=== PATIENT | female | born 1990 | race African-American/Black ===

== ENCOUNTER 2019-02-02 11:00 | Emergency (ER) | payer SELFPAY ==
[~2019-02-02] VITALS: Ht 167.6 cm; Wt 79.0 kg
[2019-02-02] MEDS ORDERED: CYCLOBENZAPRINE 10MG TABLET PO ONE (12:15)
[2019-02-02 12:36] VITALS: BP 127/84
== END 2019-02-02 12:46 | disposition home or self-care (01) ==
LOC: ER 11:00
DX: M79.10 Myalgia, unspecified site (principal); V43.62XA Car passenger injured in collision with other type car in traffic accident, initial encounter; Y93.89 Activity, other specified; Y92.488 Other paved roadways as the place of occurrence of the external cause
CPT/HCPCS: 81025; 99283

== ENCOUNTER 2022-04-19 11:21 | Inpatient (IN) | payer MEDICAID ==
[~2022-04-19] VITALS: Ht 167.6 cm; Wt 91.6 kg
[2022-04-19] MEDS ORDERED: VANCOMYCIN 1G PREMIX 200 ML IV ONE (11:45)
[2022-04-19] MEDS ORDERED: SODIUM CHLORIDE 0.9% 1000ML BAG (SEPSIS BOLUS) IV ONE (11:45)
[2022-04-19] MEDS ORDERED: PIPERACILLIN/TAZ 3.375G PREMIX 50 ML IV ONE (11:45)
[2022-04-19] MEDS ORDERED: KETOROLAC 15MG/ML VIAL IV ONE (11:45)
[2022-04-19] MEDS ORDERED: PIPERACILLIN/TAZ 3.375G PREMIX 50 ML IV NR (13:00)
[2022-04-19] MEDS ORDERED: ACETAMINOPHEN 325MG TABLET PO ONE (13:00)
[2022-04-19 13:09] LABS: HEMATOCRIT. 41.9 % (36.0-48.0); HEMOGLOBIN. 14.2 g/dL (12.0-16.0); MEAN CORPUSCULAR HEMOGLOBIN 29.8 pg (28.0-32.0); MEAN CORPUSCULAR VOLUME 87.7 fL (81.0-99.0); MEAN PLATELET VOLUME 8.1 fl (7.4-10.4); PLATELET 304 x1000/uL (130-400); RED BLOOD CELL COUNT 4.78 mill/uL (4.2-5.4); RED CELL DISTRIBUTION WIDTH 14.7 % (11.6-14.6)
[2022-04-19 13:14] LABS: INR 1.6; PROTHROMBIN TIME 16.5 sec (9.6-11.0)
[2022-04-19] MEDS ORDERED: KETOROLAC 15MG/ML VIAL IV NR (13:15)
[2022-04-19 13:20] LABS: CHLORIDE 93 mEq/L (98-107)
[2022-04-19 13:22] LABS: CLARITY URINE TURBID (CLEAR); COLOR URINE ORANGE (YELLOW); KETONES URINE TRACE (NEGATIVE); LEUKOCYTE ESTERASE URINE 1+ (NEGATIVE); NITRITE URINE POSITIVE (NEGATIVE); OCCULT BLOOD URINE 2+ (NEGATIVE); PROTEIN URINE 3+ (NEGATIVE); SPECIFIC GRAVITY URINE 1.025 (1.005-1.030)
[2022-04-19] MEDS ORDERED: WATER IV NR (13:30)
[2022-04-19] MEDS ORDERED: VANCOMYCIN 1,000 MG in DEXT 5% WATER 250 ML IV NR (13:30)
[2022-04-19] MEDS ORDERED: DEXT 5% IV NR (13:30)
[2022-04-19] MEDS ORDERED: VANCOMYCIN IV NR (13:30)
[2022-04-19 13:35] LABS: CREATINE KINASE 74 IU/L (26-192); ETHANOL BLOOD < 10 mg/dL
[2022-04-19 13:45] LABS: *BARBITURATES SCREEN URINE NEGATIVE (NEGATIVE); *BENZODIAZEPINES SCREEN URINE NEGATIVE (NEGATIVE); *COCAINE SCREEN URINE NEGATIVE (NEGATIVE); CANNABINOID URINE SCREEN NEGATIVE (NEGATIVE); METHADONE URINE SCREEN NEGATIVE (NEGATIVE); OPIATES URINE SCREEN NEGATIVE (NEGATIVE); PHENCYCLIDINE URINE SCREEN NEGATIVE (NEGATIVE)
[2022-04-19] MEDS ORDERED: ONDANSETRON HCL 4MG/2ML INJ IV NR (13:45)
[2022-04-19 13:52] LABS: *AMPHETAMINES SCREEN URINE PRESUMTIVE POSITIVE (NEGATIVE)
[2022-04-19 14:02] LABS: PLATELET ESTIMATE NORMAL
[2022-04-19 14:13] LABS: HCG SCREEN NEGATIVE
[2022-04-19] MEDS ORDERED: IOHEXOL-300 100 ML BOTTLE ONE (15:55)
[2022-04-19] MEDS ORDERED: SODIUM CHLORIDE 0.9% 1,000 ML IV ONE (16:30)
[2022-04-19 17:18] VITALS: BP 118/60
[2022-04-19 17:31] VITALS: BP 118/60
[2022-04-19] MEDS ORDERED: IPRATROPIUM/ALBUTEROL 0.5-3(2.5)MG/3ML NEB HHN PRN (17:45)
[2022-04-19] MEDS ORDERED: CLONIDINE 0.1MG TABLET PO PRN (17:45)
[2022-04-19] MEDS ORDERED: ONDANSETRON HCL 4MG/2ML INJ IV PRN (17:45)
[2022-04-19] MEDS ORDERED: DIPHENHYDRAMINE 50MG/ML VIAL IV PRN (17:45)
[2022-04-19 18:00] VITALS: BP 113/68
[2022-04-19] MEDS ORDERED: SODIUM CHLORIDE 0.9% 1,000 ML IV SCH (18:00)
[2022-04-19 20:00] VITALS: BP 106/67
[2022-04-19] MEDS ORDERED: POTASSIUM CHLORIDE INJ 40 MEQ in DEXT 5% WATER 250 ML IV ONE (20:00)
[2022-04-19] MEDS ORDERED: PIPERACILLIN/TAZOBACTAM 3.375 G in DEXTROSE 5% WATER 50 ML IV SCH (21:00)
[2022-04-19 22:00] VITALS: BP 111/75
[2022-04-19] MEDS: SODIUM CHLORIDE 0.9% 1,000 ML IV SCH (22:08)
[2022-04-19] MEDS: ACETAMINOPHEN 325MG TABLET PO PRN (22:24)
[2022-04-19] MEDS: KCL 20MEQ/100ML X 2 FOR TOTAL KCL 40MEQ/200ML IV SCH (23:37)
[2022-04-19] MEDS: VANCOMYCIN 1,000 MG in DEXT 5% WATER 250 ML IV SCH (23:37)
[2022-04-20] VITALS (17 sets, daily range): BP systolic 90–137; BP diastolic 45–80
[2022-04-20] MEDS: KCL 20MEQ/100ML X 2 FOR TOTAL KCL 40MEQ/200ML IV SCH (02:25)
[2022-04-20] MEDS: MORPHINE SULFATE 2 MG/ML CPJ (NOT FOR IM USE) IV PRN ×2 (02:27→08:14)
[2022-04-20] MEDS: ACETAMINOPHEN 325MG TABLET PO PRN ×3 (04:24→22:38)
[2022-04-20] MEDS: PIPERACILLIN/TAZOBACTAM 3.375G in DEXT 5% WATER 50ML IV SCH ×2 (05:54→13:20)
[2022-04-20] MEDS: VANCOMYCIN 1,000 MG in DEXT 5% WATER 250 ML IV SCH (08:13)
[2022-04-20] MEDS: SODIUM CHLORIDE 0.9% 1,000 ML IV SCH ×2 (08:14→21:00)
[2022-04-20] MEDS ORDERED: POTASSIUM CHLORIDE 20MEQ/PACKET PO NR (09:15)
[2022-04-20] MEDS ORDERED: NALOXONE HCL 0.4MG/ML VIAL IV PRN (09:45)
[2022-04-20] MEDS: ENOXAPARIN 40MG/0.4ML SYR SUBCUT SCH (10:34)
[2022-04-20] MEDS: CEFTRIAXONE 1,000 MG in DEXTROSE 5% WATER 50 ML IV SCH (18:27)
[2022-04-20 19:15] LABS: HEMATOCRIT. 34.1 % (36.0-48.0); HEMOGLOBIN. 11.2 g/dL (12.0-16.0); MEAN CORPUSCULAR HEMOGLOBIN 29.4 pg (28.0-32.0); MEAN CORPUSCULAR VOLUME 89.5 fL (81.0-99.0); MEAN PLATELET VOLUME 8.5 fl (7.4-10.4); PLATELET 220 x1000/uL (130-400); RED BLOOD CELL COUNT 3.81 mill/uL (4.2-5.4); RED CELL DISTRIBUTION WIDTH 14.6 % (11.6-14.6)
[2022-04-20 19:20] LABS: CHLORIDE 102 mEq/L (98-107)
[2022-04-20 22:03] LABS: PLATELET ESTIMATE NORMAL
[2022-04-21] VITALS (7 sets, daily range): BP systolic 99–135; BP diastolic 59–71
[2022-04-21] MEDS ORDERED: VANCOMYCIN 1,000 MG in DEXT 5% WATER 250 ML IV PRN ×2
[2022-04-21] MEDS: MORPHINE SULFATE 2 MG/ML CPJ (NOT FOR IM USE) IV PRN ×2 (01:00→18:28)
[2022-04-21] MEDS: ENOXAPARIN 40MG/0.4ML SYR SUBCUT SCH (09:00)
[2022-04-21] MEDS: SODIUM CHLORIDE 0.9% 1,000 ML IV SCH ×2 (09:03→21:00)
[2022-04-21] MEDS: VANCOMYCIN 1,000 MG in DEXT 5% WATER 250 ML IV SCH ×2 (10:07→20:58)
[2022-04-21] MEDS: ACETAMINOPHEN 325MG TABLET PO PRN ×2 (12:14→23:21)
[2022-04-21] MEDS ORDERED: LIDOCAINE HCL 1% 10 MG/ML 10ML VIAL ONE (12:47)
[2022-04-21] MEDS: CEFTRIAXONE 1,000 MG in DEXTROSE 5% WATER 50 ML IV SCH (17:22)
[2022-04-22] VITALS: BP 105/65
[2022-04-22 04:00] VITALS: BP 89/48
[2022-04-22 07:15] LABS: HEMATOCRIT. 29.9 % (36.0-48.0); HEMOGLOBIN. 10.1 g/dL (12.0-16.0); MEAN CORPUSCULAR HEMOGLOBIN 29.7 pg (28.0-32.0); MEAN CORPUSCULAR VOLUME 88.2 fL (81.0-99.0); MEAN PLATELET VOLUME 8.6 fl (7.4-10.4); PLATELET 285 x1000/uL (130-400); RED BLOOD CELL COUNT 3.39 mill/uL (4.2-5.4); RED CELL DISTRIBUTION WIDTH 14.9 % (11.6-14.6)
[2022-04-22 07:29] LABS: CHLORIDE 107 mEq/L (98-107)
[2022-04-22] MEDS: ENOXAPARIN 40MG/0.4ML SYR SUBCUT SCH (09:32)
[2022-04-22] MEDS: SODIUM CHLORIDE 0.9% 1,000 ML IV SCH (09:32)
[2022-04-22] MEDS: VANCOMYCIN 1,000 MG in DEXT 5% WATER 250 ML IV SCH (09:32)
[2022-04-22] MEDS: HYDROCODONE/ACETAMINOPHEN 5/325MG TABLET PO PRN ×2 (12:18→21:17)
[2022-04-22 14:00] VITALS: BP 94/56
[2022-04-22] MEDS: VANCOMYCIN 1250MG in DEXTROSE 5% WATER 250ML IV SCH ×2 (14:34→22:22)
[2022-04-22] MEDS: CEFTRIAXONE 1,000 MG in DEXTROSE 5% WATER 50 ML IV SCH (17:18)
[2022-04-22 20:00] VITALS: BP 111/53
[2022-04-23] VITALS: BP 99/63
[2022-04-23] MEDS: HYDROCODONE/ACETAMINOPHEN 5/325MG TABLET PO PRN ×4 (03:18→22:58)
[2022-04-23 03:35] LABS: PLATELET ESTIMATE NORMAL
[2022-04-23] MEDS: SODIUM CHLORIDE 0.9% 1,000 ML IV SCH ×2 (05:39→22:53)
[2022-04-23] MEDS: VANCOMYCIN 1250MG in DEXTROSE 5% WATER 250ML IV SCH ×3 (05:39→21:06)
[2022-04-23 06:27] LABS: HEMATOCRIT. 28.7 % (36.0-48.0); HEMOGLOBIN. 9.7 g/dL (12.0-16.0); MEAN CORPUSCULAR HEMOGLOBIN 30.1 pg (28.0-32.0); MEAN CORPUSCULAR VOLUME 88.5 fL (81.0-99.0); MEAN PLATELET VOLUME 8.5 fl (7.4-10.4); PLATELET 301 x1000/uL (130-400); RED BLOOD CELL COUNT 3.24 mill/uL (4.2-5.4)
[2022-04-23 06:36] LABS: CHLORIDE 109 mEq/L (98-107)
[2022-04-23] MEDS: ENOXAPARIN 40MG/0.4ML SYR SUBCUT SCH (09:00)
[2022-04-23 09:30] VITALS: BP 117/66
[2022-04-23] MEDS ORDERED: POTASSIUM CHLORIDE 20MEQ TABLET SR PO NR (10:45)
[2022-04-23] MEDS: CEFTRIAXONE 1,000 MG in DEXTROSE 5% WATER 50 ML IV SCH (17:02)
[2022-04-23 20:00] VITALS: BP 106/73
[2022-04-23 20:36] LABS: PLATELET ESTIMATE NORMAL
[2022-04-24] VITALS: BP 117/55
[2022-04-24] MEDS: SODIUM CHLORIDE 0.9% 1,000 ML IV SCH (01:00)
[2022-04-24 04:00] VITALS: BP 96/68
[2022-04-24] MEDS: VANCOMYCIN 1250MG in DEXTROSE 5% WATER 250ML IV SCH ×3 (05:03→22:58)
[2022-04-24 05:34] LABS: CHLORIDE 108 mEq/L (98-107)
[2022-04-24 05:59] LABS: HEMATOCRIT. 28.2 % (36.0-48.0); HEMOGLOBIN. 9.4 g/dL (12.0-16.0); MEAN CORPUSCULAR HEMOGLOBIN 29.6 pg (28.0-32.0); MEAN CORPUSCULAR VOLUME 88.8 fL (81.0-99.0); MEAN PLATELET VOLUME 8.2 fl (7.4-10.4); PLATELET 365 x1000/uL (130-400); RED BLOOD CELL COUNT 3.18 mill/uL (4.2-5.4); RED CELL DISTRIBUTION WIDTH 14.8 % (11.6-14.6)
[2022-04-24 08:00] VITALS: BP 117/65
[2022-04-24] MEDS: HYDROCODONE/ACETAMINOPHEN 5/325MG TABLET PO PRN (08:38)
[2022-04-24] MEDS: ENOXAPARIN 40MG/0.4ML SYR SUBCUT SCH (08:40)
[2022-04-24 12:00] VITALS: BP 120/60
[2022-04-24] MEDS ORDERED: POTASSIUM CHLORIDE 20MEQ TABLET SR PO NR (12:00)
[2022-04-24 16:00] VITALS: BP 115/69
[2022-04-24] MEDS: CEFTRIAXONE 1,000 MG in DEXTROSE 5% WATER 50 ML IV SCH (17:47)
[2022-04-25] MEDS: ENOXAPARIN 40MG/0.4ML SYR SUBCUT SCH (09:26)
[2022-04-25 20:47] LABS: PLATELET ESTIMATE NORMAL
== END 2022-04-25 11:11 | disposition left against medical advice (07) | DRG 720 ==
LOC: ER 11:21 → 5EST 15:40 → EDBEDREQ 15:46 → ER 17:04 → 6EST 04-24 17:10
PROVIDERS: ADMIT Internal Medicine; ATTEND Internal Medicine
PROC: 02HV33Z Insertion of Infusion Device into Superior Vena Cava, Percutaneous Approach (ICD-10-PCS; principal; 2022-04-21)
PROC: B548ZZA Ultrasonography of Superior Vena Cava, Guidance (ICD-10-PCS; 2022-04-21)
DX: A41.9 Sepsis, unspecified organism (principal); N17.9 Acute kidney failure, unspecified; E87.1 Hypo-osmolality and hyponatremia; L03.115 Cellulitis of right lower limb; M62.89 Other specified disorders of muscle; N39.0 Urinary tract infection, site not specified; E87.6 Hypokalemia; R65.20 Severe sepsis without septic shock; F15.90 Other stimulant use, unspecified, uncomplicated; F17.200 Nicotine dependence, unspecified, uncomplicated; Z53.29 Procedure and treatment not carried out because of patient's decision for other reasons; T63.301A Toxic effect of unspecified spider venom, accidental (unintentional), initial encounter; Y92.89 Other specified places as the place of occurrence of the external cause
CPT/HCPCS: 36415; 36573; 71045; 72192; 72195; 73701; 76376; 80048; 80053; 80202; 80305; 80320; 81003; 82550; 83605; 83880; 84145; 84484; 84703; 85025; 86140; 93005; 93970; 99291; C1725; J0696; J1200; J1650; J1885; J2270; J2405; J2543; J3370; J3480; J3490; J7030; J7060; Q9967; G0480